=== PATIENT | male | born 1955 | race Two or more races ===

== ENCOUNTER 2019-10-16 11:13 | Outpatient (RCR) | payer MEDICARE, MEDICAID | END 2019-11-04 | disposition home or self-care (01) | LOC: WCC 11:13 | DX: L89.620 Pressure ulcer of left heel, unstageable (principal); I70.248 Atherosclerosis of native arteries of left leg with ulceration of other part of lower leg; Z79.84 Long term (current) use of oral hypoglycemic drugs; Z79.899 Other long term (current) drug therapy; E11.9 Type 2 diabetes mellitus without complications; I10 Essential (primary) hypertension; Z86.73 Personal history of transient ischemic attack (TIA), and cerebral infarction without residual deficits | CPT/HCPCS: 11043; G0463 ==

== ENCOUNTER 2019-10-18 10:39 | Outpatient (CLI) | payer MEDICARE, MEDICAID | END 2019-10-18 12:39 | disposition home or self-care (01) | LOC: LAB 10:39 | DX: E46 Unspecified protein-calorie malnutrition (principal); E11.621 Type 2 diabetes mellitus with foot ulcer | CPT/HCPCS: 36415; 83036; 84134 ==

== ENCOUNTER 2019-10-18 11:04 | Outpatient (CLI) | payer MEDICARE, MEDICAID ==
--- NOTE | 2019-10-18 16:50 | Diagnostic Imaging Report ---
Indication: Nonhealing ulcer left foot Technique: Reveal duplex images of the bilateral lower extremity arteries Comparison: none Findings: On the right, grayscale and duplex images demonstrate triphasic are biphasic waveforms with sharp systolic peaks in the common femoral, superficial femoral, and popliteal arteries. There is slight dampening of waveforms of the tibial vessels, but they are patent with sharp systolic peaks. No focal flow velocity elevation demonstrated On the left, Doppler waveforms are triphasic with sharp systolic peaks at the common femoral, superficial femoral, profunda femoral levels. At the popliteal artery level, waveforms are monophasic, but systolic peaks are still sharp. There is progressive dampening of the flow in the distal vessels, with a significant diastolic component in the dorsalis pedis and peroneal arteries. 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
== END 2019-10-18 13:04 | disposition home or self-care (01) ==
LOC: VAS 11:04
DX: L98.499 Non-pressure chronic ulcer of skin of other sites with unspecified severity (principal)
CPT/HCPCS: 93925

== ENCOUNTER 2019-11-06 08:24 | Outpatient (RCR) | payer MEDICARE, MEDICAID | END 2019-12-05 | disposition home or self-care (01) | LOC: WCC 08:24 | DX: L89.624 Pressure ulcer of left heel, stage 4 (principal); I70.248 Atherosclerosis of native arteries of left leg with ulceration of other part of lower leg; E11.621 Type 2 diabetes mellitus with foot ulcer; I10 Essential (primary) hypertension; Z86.73 Personal history of transient ischemic attack (TIA), and cerebral infarction without residual deficits; Z79.82 Long term (current) use of aspirin; Z79.84 Long term (current) use of oral hypoglycemic drugs; Z79.899 Other long term (current) drug therapy | CPT/HCPCS: 11043 ==

== ENCOUNTER 2019-12-18 09:50 | Outpatient (RCR) | payer MEDICARE, MEDICAID | END 2020-01-04 | disposition home or self-care (01) | LOC: WCC 09:50 | DX: L89.624 Pressure ulcer of left heel, stage 4 (principal); I70.248 Atherosclerosis of native arteries of left leg with ulceration of other part of lower leg; E11.621 Type 2 diabetes mellitus with foot ulcer; I10 Essential (primary) hypertension; Z86.73 Personal history of transient ischemic attack (TIA), and cerebral infarction without residual deficits; Z79.82 Long term (current) use of aspirin; Z79.899 Other long term (current) drug therapy; Z79.84 Long term (current) use of oral hypoglycemic drugs | CPT/HCPCS: 11043 ==

== ENCOUNTER 2020-01-08 09:49 | Outpatient (RCR) | payer MEDICARE, MEDICAID | END 2020-02-04 | disposition home or self-care (01) | LOC: WCC 09:49 | DX: L89.624 Pressure ulcer of left heel, stage 4 (principal); I70.248 Atherosclerosis of native arteries of left leg with ulceration of other part of lower leg; E11.621 Type 2 diabetes mellitus with foot ulcer; I10 Essential (primary) hypertension; Z86.73 Personal history of transient ischemic attack (TIA), and cerebral infarction without residual deficits; Z79.82 Long term (current) use of aspirin; Z79.899 Other long term (current) drug therapy; Z79.84 Long term (current) use of oral hypoglycemic drugs | CPT/HCPCS: 11042; 11043; 15002; 29445 ==

== ENCOUNTER 2020-02-05 10:02 | Outpatient (RCR) | payer MEDICARE, MEDICAID | END 2020-03-05 | disposition home or self-care (01) | LOC: WCC 10:02 | DX: E11.621 Type 2 diabetes mellitus with foot ulcer (principal); L97.522 Non-pressure chronic ulcer of other part of left foot with fat layer exposed; I70.248 Atherosclerosis of native arteries of left leg with ulceration of other part of lower leg; I10 Essential (primary) hypertension; E11.9 Type 2 diabetes mellitus without complications; Z86.73 Personal history of transient ischemic attack (TIA), and cerebral infarction without residual deficits; L89.511 Pressure ulcer of right ankle, stage 1; L97.519 Non-pressure chronic ulcer of other part of right foot with unspecified severity; Z79.82 Long term (current) use of aspirin; Z79.899 Other long term (current) drug therapy; Z79.84 Long term (current) use of oral hypoglycemic drugs | CPT/HCPCS: 15275; 29445; Q4106; Q4133 ==

== ENCOUNTER 2020-03-11 10:32 | Outpatient (RCR) | payer MEDICARE, MEDICAID | END 2020-04-05 | disposition home or self-care (01) | LOC: WCC 10:32 | DX: E11.621 Type 2 diabetes mellitus with foot ulcer (principal); L97.522 Non-pressure chronic ulcer of other part of left foot with fat layer exposed; I70.248 Atherosclerosis of native arteries of left leg with ulceration of other part of lower leg; L89.511 Pressure ulcer of right ankle, stage 1; L97.519 Non-pressure chronic ulcer of other part of right foot with unspecified severity; Z86.73 Personal history of transient ischemic attack (TIA), and cerebral infarction without residual deficits; Z79.84 Long term (current) use of oral hypoglycemic drugs; Z79.82 Long term (current) use of aspirin; I10 Essential (primary) hypertension | CPT/HCPCS: 11042; 15275; 29445; G0463; Q4133 ==